=== PATIENT | male | born 1965 | race Caucasian/White ===

== ENCOUNTER 2022-07-13 19:57 | Emergency (ER) | payer OTHER, SELFPAY ==
[2022-07-13] VITALS (27 sets, daily range): BP systolic 129–171; BP diastolic 87–145; PULSE 84–112; RESP 12–24; TEMP 36.4–36.8; O2SAT 95–100
--- NOTE | ~2022-07-13 | XR_ITS ---
EXAMINATION: XR shoulder LT min 2V DATE: 07/13/2022 21:31 INDICATION: Postreduction left shoulder fracture dislocation. TECHNIQUE: AP and transscapular Y views of the left shoulder were obtained. COMPARISON: None FINDINGS: Successful reduction of the previously dislocated left glenohumeral joint. The previously displaced c omminuted fracture fragments involving the greater tuberosity of the proximal left humerus of also be en reduced to near-anatomic alignment. No other fractures identified. Mild glenohumeral osteoarthriti s. Visualized portion of the lungs are clear. IMPRESSION: 1. Successful reduction of the previously dislocated left glenohumeral joint which now in normal alig nment with mild osteoarthritis. 2. Successful reduction to near-anatomic alignment of a comminuted fracture of the greater tuberosity of the proximal left humerus. Reviewed, dictated and finalized at location A. YING AND CALKING SUPERVISOR IMPRESSION: 1. Successful reduction of the previously dislocated left glenohumeral joint wh ich now in normal alignment with mild osteoarthritis. 2. Successful reduction to near-anatomic alignment of a comminuted fracture of the greater tuberosity of the proximal left humerus.
--- NOTE | ~2022-07-13 | XR_ITS ---
EXAMINATION: XR shoulder LT min 2V INDICATION: Left shoulder pain, initial encounter TECHNIQUE: Three views of the left shoulder are submitted. COMPARISON: None FINDINGS: There is anterior and inferior dislocation of the humeral head with respect to the glenoid. There appears to be a comminuted greater tuberosity fracture. No additional fracture is identified. IMPRESSION: 1. Anterior and inferior dislocation of the humeral head with probable comminuted greater tuberosity fracture. Reviewed, dictated and finalized at location F. EDICAL ANALYTICAL SCIENTIST IMPRESSION: 1. Anterior and inferior dislocation of the humeral head with probable comminut ed greater tuberosity fracture.
--- NOTE | ~2022-07-13 | CT_ITS ---
EXAMINATION: CT chest abdomen pelvis w con DATE: 07/13/2022 22:39 INDICATION: Trauma post fall while intoxicated. Left shoulder fracture dislocation. TECHNIQUE: Computed tomography (CT) of the chest, abdomen, and pelvis was performed with 100 mL Omnip aque-350 intravenous contrast. Automated exposure control and iterative reconstruction technique were employed. The dose-length product was 576.18 mGy-cm. COMPARISON: None FINDINGS: CHEST CT: Mild emphysema. Atelectasis with volume loss and dependent groundglass opacities in the bilateral low er lobes. Small calcified right middle lobe nodule consistent with old granulomatous disease. No pleu ral effusion or pneumothorax. Mild cardiomegaly. No pericardial effusion. Atherosclerotic coronary ar emma calcification. Thoracic aorta is normal in caliber with no dissection or acute traumatic aortic injury. No pathologically enlarged thoracic lymphadenopathy. Diffuse mild esophageal wall thickening. Known fracture of the greater tuberosity of the left humerus is visible on the manager poker topogram. The p reviously dislocated left glenohumeral joint has been successfully reduced. ABDOMEN/PELVIS CT: Mild focal hepatic steatosis at the ligamentum teres. Gallbladder, pancreas, spleen, bilateral adrena l glands and kidneys are normal. Incidentally noted circumaortic left renal veins. Bowels including t appendix are normal. Bladder is normal. No free intraperitoneal gas or fluid. No pathologically en larged abdominal or pelvic lymphadenopathy. Moderate to severe lower lumbar spondylosis. IMPRESSION: 1. Minimally displaced fracture at the greater tuberosity of the proximal left humerus seen only on t manager poker topogram. No acute visceral organ injury in the chest, abdomen or pelvis. 2. Mild emphysema. 3. Mild cardiomegaly with coronary artery disease. 4. Diffuse mild esophageal wall thickening which could be seen with esophagitis which could be due to either reflux or other infectious or inflammatory etiologies. Reviewed, dictated and finalized at location A. UCT MARKETER IMPRESSION: 1. Minimally displaced fracture at the greater tuberosity of the proximal left humerus seen only on the manager poker topogram. No acute visceral organ injury in the chest, abdomen or pelvis. 2. Mild emphysema. 3. Mild cardiomegaly with coronary artery disease. 4. Diffuse mild esophageal wall thickening which could be seen with esophagitis which could be due to either reflux or other infectious or inflammatory etiolo gies.
--- NOTE | ~2022-07-13 | CT_ITS ---
EXAMINATION: CT brain wo con INDICATION: Head injury COMPARISON: None TECHNIQUE: Standard unenhanced head CT. The dose-length product (DLP) was 681.00 mGy-cm. The mA was a djusted according to patient size. Iterative reconstruction technique was employed. FINDINGS: There is no acute intraparenchymal hemorrhage. No evidence of mass lesion. No evidence of a cute infarction. There is mild periventricular and subcortical hypodensity probably related to small vessel ischemic disease. There is mild prominence of the sulci and ventricles related to cerebral atr ophy. Intracranial calcified cerebral atherosclerosis is noted. There are no extra-axial collections. There is no mass effect or midline shift. The orbits and soft tissues are unremarkable. There is mil d mucosal thickening of the paranasal sinuses. IMPRESSION: 1. No acute intracranial abnormality. 2. Age related findings. Reviewed, dictated and finalized at location F. INE ROPE MAKER
--- NOTE | ~2022-07-13 | CT_ITS ---
EXAMINATION: CT cervical spine wo con DATE: 07/13/2022 20:44 INDICATION: Head injury TECHNIQUE: Computed tomography (CT) of the cervical spine was performed without intravenous contrast. The dose-length product (DLP) was 387.57 mGy-cm. Automated exposure control and iterative reconstruc tion technique were employed. COMPARISON: None FINDINGS: Bone alignment is normal. There is no fracture. The vertebral body heights are maintained. The odontoid process is intact. There is mild loss of intervertebral disc space height from C4-5 thro ugh C7-T1. There is mild facet and uncovertebral joint osteoarthritis. IMPRESSION: 1. Mild cervical spondylosis without acute findings. Reviewed, dictated and finalized at location F. FACTURING ASSOCIATE
[2022-07-13 21:10] LABS: Basophils Absolute Auto 0.1 K/mm3 (0.0-0.1); Basophils Percent Auto 0.8 % (0.2-1.2); Eosinophils Absolute Auto 0.1 K/mm3 (0-0.3); Hematocrit 51.3 % (42.0-52.0); Hemoglobin 17.7 g/dL (14.0-18.0); Immature Granulocyte Absolute 0.01 K/mm3 (0.00-0.031); Immature Granulocyte Percent A 0.2 % (0-0.5); Lymphocytes Absolute Auto 2.42 K/mm3 (0.9-3.2); Lymphocytes Percent Auto 40.5 % (18.3-44.2); Mean Corpuscular HGB Conc 34.5 g/dl (32-36); Mean Corpuscular Hemoglobin 34.5 pg (26-34); Mean Platelet Volume 9.1 fl (7.4-10.4); Monocytes Absolute Auto 0.6 K/mm3 (0.1-0.6); Monocytes Percent Auto 9.4 % (2.6-8.5); Neutrophils Absolute Auto 2.8 K/mm3 (1.3-6.7); Neutrophils Percent Auto 47.1 % (45.5-73.1); Platelet Count Result 284 k/mm3 (150-375); Red Blood Count 5.13 M/mm3 (4.6-6.20); Red Cell Distribution Width 12.8 % (11.5-14.5)
[2022-07-13] MEDS: HYDROmorphone HCL INJ (*CRX) 1 MG/ML SYR IV PUSH (21:10)
[2022-07-13] MEDS: ONDANSETRON INJ 4 MG/2 ML VIAL IV PUSH (21:10)
--- NOTE | 2022-07-13 21:20 | ED.FALL ---
HPI - Fall General Chief Complaint: Fall <SHIRA Nails Last Filed: 07/14/22 04:39> Stated Complaint: L SHOULDER PAIN, ETOH, FALL <SHIRA Nails Last Filed: 07/14/22 04:39> Time Seen by Provider: 07/13/22 20:10 <SHIRA Nails Last Filed: 07/14/22 04:39> Source: patient, EMS and old records reviewed <SHIRA Nails Last Filed: 07/14/22 04:39> Mode of arrival: EMS <SIHRA Nails Last Filed: 07/14/22 04:39> Limitations: intoxication <SHIRA Nails Last Filed: 07/14/22 04:39> History of Present Illness HPI Narrative: Patient is a 57 y/o male who presents to the ED via EMS with c/o a fall. Per EMS report, patient was found down at a local bus stop with obvious trauma to his left shoulder. It appeared as though he had fallen. Unclear HI. C-collar was placed in route to the ED. Patient intoxicated. He admits to drinking 5 beers and 2 shots of fireball today. He is a daily drinker. He does complain of significant pain to his left shoulder. Unable to tell me how the fall occurred, appears to not even understand that he fell today. Patient denies any other areas of pain at this time. Denies dizziness, lightheadedness, nausea, CP, SOB, vision changes, abdominal pain. <SHIRA Nails Last Filed: 07/14/22 04:39> Related Data Allergies/Adverse Reactions: Allergies Allergy/AdvReac Type Severity Reaction Status Date / Time No Known Allergies Allergy Verified 07/13/22 20:14 <SHIRA Nails Last Filed: 07/14/22 04:39> Review of Systems Review of Systems: CONSTITUTIONAL: Denies fever, chills, or sweats. EYES: Denies visual changes. CARDIOVASCULAR: Denies chest pain. RESPIRATORY: Denies dyspnea. GASTROINTESTINAL: Denies abdominal pain, nausea, vomiting. MUSCULOSKELETAL: See HPI. NEUROLOGIC: See HPI. <Sandra Christensen PA-C - Last Filed: 07/14/22 04:39> All systems reviewed & are unremarkable except as noted in HPI and below <Sandra Christensen PA-C - Last Filed: 07/14/22 04:39> PMFSH Past Medical History Medical History: Medical History (Updated 07/14/22 @ 03:33 by Sandra Christensen PA-C) COPD (chronic obstructive pulmonary disease) <Sandra Christensen PA-C - Last Filed: 07/14/22 04:39> Surgical History Surgical History: Surgical History (Updated 07/13/22 @ 23:24 by Sandra Christensen PA-C) No pertinent past surgical history <Sandra Christensen PA-C - Last Filed: 07/14/22 04:39> Social History Social History: Social History (Updated 07/14/22 @ 04:33 by Sandra Christensen PA-C) Smoking status: Current every day smoker Alcohol intake: current Alcohol use details: alcoholism <Sandra Christensen PA-C - Last Filed: 07/14/22 04:39> Exam Narrative: GENERAL: Disheveled, well-nourished, non-toxic, in mild acute distress due to pain. HEAD: Normocephalic, atraumatic. NECK: Supple. No adenopathy, no masses. C-collar in place. No appreciable midline cervical spinal tenderness to palpation. RESPIRATORY: Airway patent, respirations nonlabored. Clear to auscultation bilaterally, no rales, rhonchi, wheezing. CARDIOVASCULAR: Tachycardic with regular rhythm without murmurs, rubs, or gallops. Radial pulses 2+ and equal bilaterally. ABDOMINAL: Soft, nontender, nondistended, no hepatosplenomegaly. Normoactive BS. MUSCULOSKELETAL: Limited range of motion of left shoulder due to pain. Obvious deformity with shoulder appearing to be dislocated anteriorly. Patient holding arm in flexed abduction above head. Sensation intact. Able to move all fingers. No tenderness over left elbow or wrist. Good capillary refill of all fingers. SKIN: Warm, dry, normal color. No rashes. Yellow discoloration of fingers. NEURO: A&O X3, able to answer all orientation questions. Speech somewhat garbled, consistent with intoxication. Cranial nerves II-XI
[2022-07-13 21:24] LABS: INR 0.9; Prothrombin Time 11.8 Seconds (11.1-14.7)
[2022-07-13 21:25] LABS: Partial Thromboplastin Time 26.5 SECONDS (22.3-36.8)
[2022-07-13 21:41] LABS: Ethanol 362 mg/dL (<10)
[2022-07-13 21:55] LABS: Alanine Aminotransferase 28 U/L (6-50); Albumin Level 4.9 g/dL (3.5-5.1); Alkaline Phosphatase 80 U/L (38-126); Anion Gap 13 mmol/L (8-16); Aspartate Amino Transferase 43 U/L (17-59); Bilirubin,Total 0.5 mg/dL (0.2-1.3); Blood Urea Nitrogen 4 mg/dL (9-20); Calcium 9.1 mg/dL (8.4-10.2); Carbon Dioxide 28 mmol/L (22-30); Chloride 102 mmol/L (98-107); Estimated Glomerular Filt Rate > 60; Glucose 100 mg/dL (65-110); Potassium 3.6 mmol/L (3.4-5.0); Sodium 143 mmol/L (137-145)
--- NOTE | 2022-07-13 22:22 | PC.NURSE ---
2115 50 Mg propofol pushed by ERP for conscious sedation.
[2022-07-13] MEDS: SODIUM CHLORIDE 0.9% IV 1,000 ML 999 ML (22:29)
[2022-07-14] VITALS (15 sets, daily range): BP systolic 106–128; BP diastolic 77–116; PULSE 101–119; RESP 12–28; O2SAT 91–100
[2022-07-14] MEDS: KETOROLAC 30 MG/ML VIAL (*BKC) IV PUSH (03:19)
== END 2022-07-14 03:45 | disposition home or self-care (01) ==
PROVIDERS: Emergency Provider Physician Assistant
DX: S43.015A Anterior dislocation of left humerus, initial encounter (principal); S42.252A Displaced fracture of greater tuberosity of left humerus, initial encounter for closed fracture; F10.10 Alcohol abuse, uncomplicated; Y90.8 Blood alcohol level of 240 mg/100 ml or more; J44.9 Chronic obstructive pulmonary disease, unspecified; W19.XXXA Unspecified fall, initial encounter
CPT/HCPCS: 23665; 36415; 70450; 71260; 72125; 73030; 74177; 80053; 80307; 85025; 85610; 85730; 96361; 96374; 96375; 99285; J1170; J1885; J2405; J2704; J7030; Q9967

== ENCOUNTER 2022-07-28 07:48 | Inpatient (IN) | payer OTHER, SELFPAY ==
[2022-07-28] VITALS (12 sets, daily range): BP systolic 127–172; BP diastolic 71–123; PULSE 62–101; RESP 16–20; TEMP 36.7–37; O2SAT 93–99; BMI 24.3
--- NOTE | ~2022-07-28 | XR_ITS ---
Left Shoulder Technique: AP and scapular Y views were obtained. Clinical History: Injury COMPARISON: 07/13/2022 Findings: There is a fracture involving the greater tuberosity of the humerus, with mild displacement small fragments which is new as compared to prior exam. There is increased lucency about the previou sly noted fracture on compatible with interval early healing process. Soft tissues are unremarkable. Impression: Fracture the greater tuberosity humerus, with interval displacement of several small fragments. Reviewed, dictated and finalized at location . Impression: Fracture the greater tuberosity humerus, with interval displacement of several small fragments.
--- NOTE | 2022-07-28 07:55 | ECG_ITS ---
Measurements Intervals [place] Rate: 98 P: 58 OK: 162 QRS: 17 QRSD: 94 T: 26 QT: 344 QTc: 441 Interpretive Statements SINUS RHYTHM INCOMPLETE RIGHT BUNDLE BRANCH BLOCK BASELINE ARTIFACT- I, II, III, AVR, AVL, AVF, V1-V6 BORDERLINE ECG NO PREVIOUS ECG AVAILABLE FOR COMPARISON Electronically Signed On 07-28-2022 8:24:58 CDT by Tevin Shah D.O.
--- NOTE | 2022-07-28 08:03 | ED.ARRPALP ---
HPI - Arrhythmia/Palpitations General Chief Complaint: Arrhythmia/Palpitations Stated Complaint: palpitations, shoulder pain, alcohol abuse Time Seen by Provider: 07/28/22 07:50 History of Present Illness HPI narrative: Patient had injured his left shoulder and was supposed to follow-up, however the pain medication he had been started on contain a narcotic, and his monthly naltrexone dosage had been held because of this, and he states that he started drinking again and his girlfriend then broke up with him, he has been drinking more to cope with this. Last drink was last night. He hasn't worn his sling because he can't figure it out. Related Data Allergies Allergy/AdvReac Type Severity Reaction Status Date / Time No Known Allergies Allergy Verified 07/13/22 20:14 Review of Systems Review of Systems: CONST: No fever. HEENT: No sore throat C/V: No chest pain RESP: No cough GI: no nausea or vomiting : No dysuria. M/S: Left shoulder pain SKIN: No rash. NEURO: Tremors PSYCH: Feeling sad [facility] Past Medical History Medical History (Updated 07/28/22 @ 13:09 by Allyn Chamorro MD) Alcohol abuse COPD (chronic obstructive pulmonary disease) Surgical History Surgical History (Updated 07/28/22 @ 13:07 by Megan Dunn NP) History of appendectomy S/P T&A (status post tonsillectomy and adenoidectomy) Family History Family History (Updated 07/28/22 @ 13:07 by Megan Dunn NP) Father AA (alcohol abuse) Social History Social History (Updated 07/28/22 @ 13:05 by Megan Dunn NP) Social History: lives alone. [employer] 3 children 1ppk 8-10 beers Smoking status: Current every day smoker Alcohol intake: current Alcohol use details: alcoholism Exam Narrative: EXAMINATION OF ORGAN SYSTEMS/BODY AREAS: Constitutional: Vital signs per nursing GENERAL: Appears quite sad HEAD: Normal with no signs of head trauma. EYES: EOMI, conjunctiva normal ENT: Hearing grossly intact LUNGS: Nonlabored breathing. HEART: Regular rate and rhythm ABD: [Soft], [nontender to palpation] EXT: Some bruising and tenderness over the left shoulder SKIN: Some bruising over left shoulder NEURO: [Alert and oriented x 3. Tremulous.] PSYCH: Sad affect. Denies any thoughts of self-harm Course Vital Signs Vital signs: Vital Signs Temperature 98.6 F 07/28/22 08:00 Pulse Rate 91 07/28/22 08:00 Respiratory Rate 20 07/28/22 08:00 Blood Pressure 172/123 H 07/28/22 08:00 Pulse Oximetry 99 07/28/22 08:00 Oxygen Delivery Room Air 07/28/22 08:00 Temperature 98.6 F 07/28/22 08:00 Pulse Rate 101 H 07/28/22 11:31 Respiratory Rate 20 07/28/22 11:31 Blood Pressure 155/112 H 07/28/22 11:31 Pulse Oximetry 95 07/28/22 11:31 Oxygen Delivery Room Air 07/28/22 08:00 MDM - Arrhythmia/Palpitations MDM Narrative Medical decision making narrative: 57-year-old male presenting with concern for alcohol withdrawal, he also injured his shoulder a week ago but has not been able to follow-up nor has he been able to figure how to put his sling back on. He has been drinking to cope with the pain. Vital signs notable for blood pressure and tachycardia here, he is quite tremulous here, I did do suspect he may be in very mild withdrawal, he will be started on benzodiazepines here, I will reimage his shoulder. I did review the images myself, noted possible worsening/more fragments than prior shoulder x-ray, he is placed back in a sling, I did reevaluate him and though he is feeling better after the initial medications, he does live alone there are stairs at home, and he is unsure if he is able to care for himself, given this and the fact that he is still having quite serious tremors, I do feel he could benefit from admission for alcohol withdrawal and possible physical therapy. Case discussed with the hospitalist. Lab Data 07/28/22 08:29 07/28/22 08:29 Labs: Lab Results
[2022-07-28 08:34] LABS: Basophils Absolute Auto 0.1 K/mm3 (0.0-0.1); Basophils Percent Auto 0.7 % (0.2-1.2); Eosinophils Percent Auto 0.1 % (0-4.4); Hematocrit 41.9 % (42.0-52.0); Hemoglobin 14.8 g/dL (14.0-18.0); Immature Granulocyte Absolute 0.03 K/mm3 (0.00-0.031); Immature Granulocyte Percent A 0.3 % (0-0.5); Lymphocytes Percent Auto 11.2 % (18.3-44.2); Mean Corpuscular HGB Conc 35.3 g/dl (32-36); Mean Corpuscular Hemoglobin 34.7 pg (26-34); Mean Corpuscular Volume 98.1 fl (80-100); Mean Platelet Volume 8.1 fl (7.4-10.4); Monocytes Absolute Auto 0.4 K/mm3 (0.1-0.6); Monocytes Percent Auto 3.9 % (2.6-8.5); Neutrophils Percent Auto 83.8 % (45.5-73.1); Platelet Count Result 552 k/mm3 (150-375); Red Blood Count 4.27 M/mm3 (4.6-6.20); Red Cell Distribution Width 12.6 % (11.5-14.5); White Blood Count 10.7 K/mm3 (4.5-10.0)
[2022-07-28] MEDS: LACTATED RINGERS 1,000 ML 999 ML IV CONT (08:34)
[2022-07-28] MEDS: chlordiazePOXIDE (*CRX) 25 MG CAPSULE PO ×2 (08:34→12:01)
[2022-07-28] MEDS: LORazepam INJ (*CRX) 2 MG/ML VIAL IV PUSH ×4 (08:38→23:10)
[2022-07-28 08:43] LABS: Ethanol 165 mg/dL (<10)
[2022-07-28 08:44] LABS: Alanine Aminotransferase 18 U/L (6-50); Albumin Level 4.7 g/dL (3.5-5.1); Alkaline Phosphatase 92 U/L (38-126); Anion Gap 7 mmol/L (8-16); Aspartate Amino Transferase 38 U/L (17-59); Bilirubin,Total 0.8 mg/dL (0.2-1.3); Blood Urea Nitrogen 5 mg/dL (9-20); Carbon Dioxide 26 mmol/L (22-30); Chloride 105 mmol/L (98-107); Estimated Glomerular Filt Rate > 60; Glucose 80 mg/dL (65-110); Potassium 4.2 mmol/L (3.4-5.0); Sodium 138 mmol/L (137-145)
--- NOTE | 2022-07-28 11:31 | PC.NURSE ---
assumed care of pt. pt resting on stretcher, arousable to name. pt c/o left shoulder pain. no other distress noted at this time
--- NOTE | 2022-07-28 12:58 | PM.IMHP ---
H&P: HPI History of Present Illness Date/Time: 07/28/22 12:58 Chief Complaint: Palpitation Narrative: This is a 57-year-old male patient who was recently seen on 07/13/2022 due to ETOH and left shoulder pain. At that time the patient fell down at a bus terminal now and had trauma to his left shoulder. And orthopedic joint reduction had been performed at that time. The patient was placed in a shoulder immobilizer and sent home at that time. The patient came into the emergency room today because of increased alcohol use. The patient last drink last night. The patient has not been able to wear his left shoulder sling due to difficulty placing it on his left shoulder. His white count is 10.7. His alcohol level is 165. Shoulder x-ray was read as fracture the greater tuberosity humerus and interval displacement of several small fragments. The patient was having tremors in the emergency room and going through alcohol withdrawals. The patient was given Ativan and a banana bag as well as Librium in the emergency room. The patient is being admitted to inpatient status on the date of service of 07/28/2022 Review of Systems Review of Systems: All systems reviewed & are unremarkable except as noted in HPI and below Constitutional: Constitutional: Reports as per HPI and Reports no additional constitutional complaints Eyes: Eyes: Reports as per HPI and Reports no additional eye complaints ENT: Reports system reviewed and no additional complaints, except as documented and Reports Normal hearing present Cardiovascular: Cardiovascular: Reports no additional cardiovascular complaints Respiratory: Respiratory: Reports no additional respiratory complaints and Reports no additional respiratory complaints Gastrointestinal: Gastrointestinal: Reports as per HPI and Reports no additional gastrointestinal complaints Musculoskeletal: Musculoskeletal: Reports no additional musculoskeletal complaints Integumentary/Breasts: Skin/Breast: Reports system reviewed and no additional complaints, except as docu and Reports as per HPI Neurologic: Reports system reviewed and no additional complaints, except as documented, Reports as per HPI and Reports Normal hearing present Psychiatric: Psychiatric: Reports no additional psychiatric complaints and Reports as per HPI Endocrine: Endocrine: Reports no additional endocrine complaints Hematologic/Lymphatic: Hematologic/Lymphatic: Reports no additional hematologic/lymphatic complaints Allergic/Immunologic: Allergic/Immunologic: Reports no additional allergic/immunologic complaints [facility] Past Medical History Medical History (Updated 07/28/22 @ 17:32 by Megan Dunn NP) Alcohol abuse COPD (chronic obstructive pulmonary disease) Tobacco abuse Surgical History Surgical History (Updated 07/28/22 @ 17:26 by Megan Dunn NP) History of appendectomy S/P T&A (status post tonsillectomy and adenoidectomy) Family History Family History Father AA (alcohol abuse) Social History Social History (Updated 07/28/22 @ 17:34 by Megan Dunn NP) Social History: He is and lives alone. He recently broke up with a significant other. He works at the [employer]. He has 3 children. He smokes anywher 3/ 4 to 1ppk a cigarettes per day. He drinks approximately 8-10 beers a day. Code status full code Smoking status: Current every day smoker Alcohol intake: current Alcohol use details: alcoholism Meds Home Medications and Allergies Home Medications Medication Instructions Recorded Confirmed Type hydrocodone 5 mg-acetaminophen 325 1 tablet PO Q6H PRN pain #15 tabs 07/14/22 Rx mg tablet naproxen 250 mg tablet 250 mg PO BID PRN pain #20 tabs 07/14/22 Rx Allergies Allergy/AdvReac Type Severity Reaction Status Date / Time No Known Allergies Allergy Verified 07/13/22 20:14 Vital Signs Vital Signs - 24 hr
[2022-07-28 18:06] LABS: Glucose Point of Care 83 mg/dl (65-105)
[2022-07-28] MEDS: chlordiazePOXIDE (*CRX) 25 MG CAPSULE 50 MG PO ×2 (18:23→23:10)
--- NOTE | 2022-07-28 19:00 | ADMIMU ---
This patient, Fabian Madden, was admitted to IMU status, and placed in IMU Room 206-02. Patient/family oriented to hospital policies and general routines including ID bracelet, bed and alarms, visiting hours, pain management, procedures, bathroom and other care routines, personal items, smoking policy, room service/diet, and visiting hours. Valuables list has been completed. Information on how to activate the Rapid Response Team has been discussed. Patient/Family are encouraged to report perceived risks to care and to ask questions if they do not understand what they are told or what they should do.
[2022-07-29] VITALS: BP 128/78; PULSE 63; PULSE 64; RESP 20; TEMP 36.7; O2SAT 94
[2022-07-29 00:03] LABS: Glucose Point of Care 105 mg/dl (65-105)
[2022-07-29 02:00] VITALS: PULSE 62
[2022-07-29 04:00] VITALS: BP 143/86; PULSE 62; PULSE 65; PULSE 85; RESP 20; TEMP 36.4; O2SAT 92; O2SAT 94
[2022-07-29 05:08] LABS: Basophils Absolute Auto 0.1 K/mm3 (0.0-0.1); Basophils Percent Auto 1.3 % (0.2-1.2); Eosinophils Absolute Auto 0.3 K/mm3 (0-0.3); Eosinophils Percent Auto 4.1 % (0-4.4); Hematocrit 37.5 % (42.0-52.0); Hemoglobin 13.1 g/dL (14.0-18.0); Immature Granulocyte Absolute 0.02 K/mm3 (0.00-0.031); Immature Granulocyte Percent A 0.3 % (0-0.5); Lymphocytes Percent Auto 19.7 % (18.3-44.2); Mean Corpuscular HGB Conc 34.9 g/dl (32-36); Mean Corpuscular Hemoglobin 34.8 pg (26-34); Mean Corpuscular Volume 99.7 fl (80-100); Mean Platelet Volume 8.5 fl (7.4-10.4); Monocytes Absolute Auto 0.5 K/mm3 (0.1-0.6); Monocytes Percent Auto 7.7 % (2.6-8.5); Neutrophils Absolute Auto 4.1 K/mm3 (1.3-6.7); Neutrophils Percent Auto 66.9 % (45.5-73.1); Platelet Count Result 443 k/mm3 (150-375); Red Blood Count 3.76 M/mm3 (4.6-6.20); Red Cell Distribution Width 12.3 % (11.5-14.5); White Blood Count 6.1 K/mm3 (4.5-10.0)
[2022-07-29 05:17] LABS: Alanine Aminotransferase 14 U/L (6-50); Albumin Level 3.5 g/dL (3.5-5.1); Alkaline Phosphatase 77 U/L (38-126); Anion Gap 1 mmol/L (8-16); Aspartate Amino Transferase 27 U/L (17-59); Bilirubin,Total 1.4 mg/dL (0.2-1.3); Blood Urea Nitrogen 6 mg/dL (9-20); Calcium 8.6 mg/dL (8.4-10.2); Carbon Dioxide 29 mmol/L (22-30); Chloride 105 mmol/L (98-107); Estimated CRCL calculation 102 ml/min; Estimated Glomerular Filt Rate > 60; Glucose 85 mg/dL (65-110); Lipase 57 U/L (23-300); Magnesium 1.8 mg/dL (1.6-2.3); Potassium 3.5 mmol/L (3.4-5.0); Sodium 135 mmol/L (137-145)
[2022-07-29] MEDS: chlordiazePOXIDE (*CRX) 25 MG CAPSULE 50 MG PO (05:46)
[2022-07-29 05:58] VITALS: PULSE 71
[2022-07-29 08:00] VITALS: BP 132/70; PULSE 74; RESP 14; TEMP 36.4; O2SAT 96
--- NOTE | 2022-07-29 10:28 | PC.NURSE ---
Upon morning assessment, patient alert and oriented x3, VSS. Patient refused medications and stated he was leaving. patient was advised of all risk and complications related to leaving against medical care. Patient was also informed of complete liability of medical bill if he left without consent. IV and contract specialist was removed at this time. Patient signed consent to leave and took off his imobility sling. Patient walked out of hospital by himself. Phyisician notified and updated.
--- NOTE | 2022-07-29 11:49 | PM.DS ---
DS: Admitting Diagnosis Discharge Date 07/29/22 Admitting Diagnosis 07/28/2022 Palpitation DS: Discharge Diagnosis Discharge Diagnosis (1) Alcohol withdrawal: Code(s): F10.939 - Alcohol use, unspecified with withdrawal, unspecified Status: Acute Assessment and Plan: Continue using CIWA score sales support coordinator consult greatly be appreciated. The patient stated that he is willing to go to rehab. The patient was given a banana bag. Continue with Librium Continue with p.r.n. Ativan Continue with thiamin and folic acid P.r.n. Haldol (2) COPD (chronic obstructive pulmonary disease): Code(s): J44.9 - Chronic obstructive pulmonary disease, unspecified Status: Acute Assessment and Plan: P.r.n. albuterol (3) Injury of shoulder: Code(s): S49.90XA - Unspecified injury of shoulder and upper arm, unspecified arm, initial encounter Status: Acute Assessment and Plan: PT OT evaluation greatly be appreciated. continue use of left arm sling (4) Tobacco abuse: Code(s): Z72.0 - Tobacco use Status: Acute Assessment and Plan: Smoking cessation has discussed for approximately 5 minutes the patient is agreeable to a nicotine patch DS: Summary Hospital Course Hospital Course: Pt admitted 07/28 pt left AMA 07/29 before being seen by MD, pulled off sling and left AMA. Time Spent with Patient Time attestation: Total time spent providing and/or coordinating discharge services: DS: Data Data Completed and Pending Labs on day of discharge: Labs from last 24 hours 07/29/22 07/29/22 07/29/22 04:44 04:44 04:44 WBC 6.1 RBC 3.76 L Hgb 13.1 L Hct 37.5 L MCV 99.7 MCH 34.8 H MCHC 34.9 RDW 12.3 Plt Count 443 H MPV 8.5 Immature Gran % (Auto) 0.3 Neut % (Auto) 66.9 Lymph % (Auto) 19.7 Dixie % (Auto) 7.7 Eos % (Auto) 4.1 Baso % (Auto) 1.3 H Lymph # (Auto) 1.20 Dixie # (Auto) 0.5 Eos # (Auto) 0.3 Baso # (Auto) 0.1 Abs Immat Gran (auto) 0.02 Absolute Neuts (auto) 4.1 Absolute Nucleated RBC 0.0 Nucleated RBC % 0.0 Sodium 135 L Potassium 3.5 Chloride 105 Carbon Dioxide 29 Anion Gap 1 L BUN 6 L Creatinine 0.60 L Estim Creat Clear Calc 102 Estimated GFR > 60 Glucose 85 POC Capillary Glucose Calcium 8.6 Magnesium 1.8 Total Bilirubin 1.4 H AST 27 ALT 14 Alkaline Phosphatase 77 Total Protein 6.0 L Albumin 3.5 Lipase 57 TSH (Reflex) 3.640 07/28/22 07/28/22 23:57 18:03 WBC RBC Hgb Hct MCV MCH MCHC RDW Plt Count MPV Immature Gran % (Auto) Neut % (Auto) Lymph % (Auto) Dixie % (Auto) Eos % (Auto) Baso % (Auto) Lymph # (Auto) Dixie # (Auto) Eos # (Auto) Baso # (Auto) Abs Immat Gran (auto) Absolute Neuts (auto) Absolute Nucleated RBC Nucleated RBC % Sodium Potassium Chloride Carbon Dioxide Anion Gap BUN Creatinine Estim Creat Clear Calc Estimated GFR Glucose POC Capillary Glucose 105 83 Calcium Magnesium Total Bilirubin AST ALT Alkaline Phosphatase Total Protein Albumin Lipase TSH (Reflex) Discharge Plan Discharge Attending physician on discharge: Noelle Jamison Discharging Clinician: Noelle Jamison Anticipated Discharge Date/Time: 07/29/22 08:00 Patient Disposition: Left Against Medical Advice Activity: as tolerated Diet: as tolerated Discharge Medications: No Action trazodone 50 mg tablet 50 mg PO DAILY Date of admission: 07/28/22 12:21 Primary Care Provider: UNKNOWN,DOCTOR Admitting Provider: Rosi Verdugo Attending physician on admission: Rosi Verdugo Condition: Improved
== END 2022-07-29 09:17 | disposition left against medical advice (07) | DRG 770 ==
LOC: ANHED 13:09 → ANHIMU 15:36
PROVIDERS: Nurse Practitioner; Admitting Provider Family Medicine; Emergency Provider Emergency Medicine; Visit Provider Family Medicine
DX: F10.239 Alcohol dependence with withdrawal, unspecified (principal); F17.210 Nicotine dependence, cigarettes, uncomplicated; S42.252A Displaced fracture of greater tuberosity of left humerus, initial encounter for closed fracture; J44.9 Chronic obstructive pulmonary disease, unspecified; W18.30XA Fall on same level, unspecified, initial encounter
CPT/HCPCS: 36415; 73030; 80053; 80307; 82948; 83690; 83735; 84443; 85025; 93005; 96361; 96374; 96376; 99285; A4565; A9270; J2060; J3411; J3475; J7030; J7120

== ENCOUNTER 2022-08-28 16:59 | Emergency (ER) | payer OTHER, SELFPAY ==
[2022-08-28 17:27] VITALS: BP 139/92; PULSE 86; RESP 16; TEMP 36.6; O2SAT 96
--- NOTE | 2022-08-28 17:47 | ED.ANIMALBIT ---
HPI - Animal Bite General Chief Complaint: Animal Bite Stated Complaint: Dog Bite Time Seen by Provider: 08/28/22 17:47 Source: patient, RN notes reviewed and old records reviewed Mode of arrival: ambulatory Limitations: no limitations History of Present Illness HPI narrative: 57-year-old male presents to the [facility] with complaints of a dog bite to the right upper thigh that occurred at 6:45 last night. States that he was evaluated by paramedics but did not seek further medical treatment. Dog is currently under quarantine, has not had shots in years. Red, scabbed over area noted 4 x 4 cm with a scabbed over area that is 4 cm Onset (ago): day(s) (1) Related Data Patient tetanus UTD: No Home Medications Medication Instructions Recorded Confirmed trazodone 50 mg tablet 50 mg PO DAILY 07/28/22 08/28/22 aripiprazole 2 mg tablet 2 mg PO DIRECTED 08/28/22 08/28/22 hydroxyzine pamoate 25 mg capsule 25 mg PO DIRECTED 08/28/22 08/28/22 Allergies Allergy/AdvReac Type Severity Reaction Status Date / Time Opioids - Morphine Analogues AdvReac Unknown Unknown Verified 08/28/22 17:01 Review of Systems Review of Systems: All systems reviewed & are unremarkable except as noted in HPI and below Constitutional: Constitutional: Reports no additional constitutional complaints Eyes: Eyes: Reports no additional eye complaints ENT: Reports system reviewed and no additional complaints, except as documented Cardiovascular: Cardiovascular: Reports no additional cardiovascular complaints, Denies chest pain and Denies dyspnea Respiratory: Respiratory: Reports no additional respiratory complaints, Denies chest congestion, Denies cough and Denies dyspnea Gastrointestinal: Gastrointestinal: Reports no additional gastrointestinal complaints, Denies abdominal pain, Denies nausea and Denies vomiting Musculoskeletal: Musculoskeletal: Reports no additional musculoskeletal complaints Integumentary/Breasts: Skin/Breast: Reports as per HPI Neurologic: Reports system reviewed and no additional complaints, except as documented Psychiatric: Psychiatric: Reports no additional psychiatric complaints Allergic/Immunologic: Allergic/Immunologic: Reports no additional allergic/immunologic complaints PMFSH Past Medical History Medical History Alcohol abuse COPD (chronic obstructive pulmonary disease) Tobacco abuse Surgical History Surgical History H/O vasectomy S/P T&A (status post tonsillectomy and adenoidectomy) Family History Family History Father AA (alcohol abuse) Social History Social History Social History: He is and lives alone. He recently broke up with a significant other. He works at the [employer]. He has 3 children. He smokes anywher 3/ 4 to 1ppk a cigarettes per day. He drinks approximately 8-10 beers a day. Code status full code Smoking packs per day: 1 Smoking cigarettes per day: 20.0 Years smoked: 30 Smoking pack-years: 30.00 Smoking status: Current every day smoker Tobacco type: cigarettes Alcohol intake: former Drinks per week: 70 Alcohol use details: quit drinking 07/29/22 Substance use: former Substance use type: marijuana Lack of Transportation: YES Lack of Food: Never True Current Housing: I Have Housing Concerned About Future Housing: YES Difficulty Paying Gas/Electric Bills: YES Difficulty Paying for Meds: No Currently Unemployed: No Education: Bachelor's Degree Difficulty w/ Childcare or Family Care: No Living arrangements: alone Occupation/Education: occupation Additional occupation/education comments: [employer] Gender identity (if verbalized by the patient): Male Spiritual care concerns: No Comments At the time of my
[2022-08-28] MEDS: TETANUS,DIPHTHERIA,AC PERTUSSIS ADULT (0.5 ML) BOOSTRIX IM (18:04)
== END 2022-08-28 18:15 | disposition home or self-care (01) ==
PROVIDERS: Emergency Provider Nurse Practitioner
DX: S71.151A Open bite, right thigh, initial encounter (principal); W54.0XXA Bitten by dog, initial encounter; Z23 Encounter for immunization; F17.210 Nicotine dependence, cigarettes, uncomplicated; J44.9 Chronic obstructive pulmonary disease, unspecified; Z98.52 Vasectomy status
CPT/HCPCS: 90471; 90715; 99213; G0463

== ENCOUNTER 2022-09-06 10:40 | Emergency (ER) | payer OTHER, SELFPAY ==
[2022-09-06 11:04] VITALS: BP 120/90; PULSE 81; RESP 18; TEMP 36.6; O2SAT 98
--- NOTE | 2022-09-06 11:17 | ED.GENADULT ---
HPI - General Adult General Chief complaint: Wound/Laceration Stated complaint: Right Thigh Pain Time Seen by Provider: 09/06/22 11:17 Source: patient, RN notes reviewed and old records reviewed Mode of arrival: ambulatory Limitations: no limitations History of Present Illness HPI narrative: 57-year-old male presents to the [facility] with right posterior thigh pain. Was seen and evaluated for a dog bite 08/28/22, tetanus updated, prescribed antibiotics. Patient states he has been keeping it clean but his pants keep rubbing on it. Has 4 more pills left of his antibiotics. Related Data Home Medications Medication Instructions Recorded Confirmed trazodone 50 mg tablet 50 mg PO DAILY 07/28/22 09/06/22 aripiprazole 2 mg tablet 2 mg PO DIRECTED 08/28/22 09/06/22 hydroxyzine pamoate 25 mg capsule 25 mg PO DIRECTED 08/28/22 09/06/22 Allergies Allergy/AdvReac Type Severity Reaction Status Date / Time Opioids - Morphine Analogues AdvReac Unknown Unknown Verified 09/06/22 11:02 Review of Systems Review of Systems: All systems reviewed & are unremarkable except as noted in HPI and below Constitutional: Constitutional: Reports no additional constitutional complaints Eyes: Eyes: Reports no additional eye complaints ENT: Reports system reviewed and no additional complaints, except as documented Cardiovascular: Cardiovascular: Reports no additional cardiovascular complaints, Denies chest pain and Denies dyspnea Respiratory: Respiratory: Reports no additional respiratory complaints, Denies chest congestion, Denies cough and Denies dyspnea Gastrointestinal: Gastrointestinal: Reports no additional gastrointestinal complaints, Denies abdominal pain, Denies nausea and Denies vomiting Musculoskeletal: Musculoskeletal: Reports no additional musculoskeletal complaints Integumentary/Breasts: Skin/Breast: Reports as per HPI Neurologic: Reports system reviewed and no additional complaints, except as documented Psychiatric: Psychiatric: Reports no additional psychiatric complaints Allergic/Immunologic: Allergic/Immunologic: Reports no additional allergic/immunologic complaints [facility] Past Medical History Medical History Alcohol abuse COPD (chronic obstructive pulmonary disease) Tobacco abuse Surgical History Surgical History H/O vasectomy S/P T&A (status post tonsillectomy and adenoidectomy) Family History Family History Father AA (alcohol abuse) Social History Social History Social History: He is and lives alone. He recently broke up with a significant other. He works at the [employer]. He has 3 children. He smokes anywher 3/ 4 to 1ppk a cigarettes per day. He drinks approximately 8-10 beers a day. Code status full code Smoking packs per day: 1 Smoking cigarettes per day: 20.0 Years smoked: 30 Smoking pack-years: 30.00 Smoking status: Current every day smoker Tobacco type: cigarettes Alcohol intake: former Drinks per week: 70 Alcohol use details: quit drinking 07/29/22 Substance use: former Substance use type: marijuana Lack of Transportation: YES Lack of Food: Never True Current Housing: I Have Housing Concerned About Future Housing: YES Difficulty Paying Gas/Electric Bills: YES Difficulty Paying for Meds: No Currently Unemployed: No Education: Bachelor's Degree Difficulty w/ Childcare or Family Care: No Living arrangements: alone Occupation/Education: occupation Additional occupation/education comments: warehouse Gender identity (if verbalized by the patient): Male Spiritual care concerns: No Comments At the time of my signature, I reviewed and agree with the nursing past medical, surgical, social, and family history. Ther
== END 2022-09-06 11:28 | disposition home or self-care (01) ==
PROVIDERS: Emergency Provider Nurse Practitioner
DX: Z48.00 Encounter for change or removal of nonsurgical wound dressing (principal); J44.9 Chronic obstructive pulmonary disease, unspecified; Z98.52 Vasectomy status; F17.210 Nicotine dependence, cigarettes, uncomplicated
CPT/HCPCS: 99211; G0463

== ENCOUNTER 2023-10-22 08:22 | Emergency (ER) | payer SELFPAY ==
--- NOTE | 2023-10-22 08:28 | ED.BACK ---
HPI - Back Pain/Injury General Chief Complaint: Back Pain/Injury Stated Complaint: Back/Side Pain Time Seen by Provider: 10/22/23 08:24 Source: patient Mode of arrival: ambulatory Limitations: no limitations History of Present Illness HPI Narrative: Patient is a 58-year-old male that presents with left-sided rib pain that has worsened over the last 3 days. Patient states he had a coughing fit while smoking marijuana and is now having muscle spasms. Patient took ibuprofen 400 mg last night. Denies any shortness of breath. Related Data Home Medications Medication Instructions Recorded Confirmed fluoxetine 40 mg capsule 40 mg PO DIRECTED 10/22/23 10/22/23 Allergies Allergy/AdvReac Type Severity Reaction Status Date / Time Opioids - Morphine Analogues AdvReac Unknown Unknown Verified 10/22/23 08:33 Review of Systems Review of Systems: All systems reviewed & are unremarkable except as noted in HPI and below Constitutional: Constitutional: Denies body ache(s), Denies chills, Denies fatigue, Denies fever(s), Denies headache(s), Denies malaise and Denies weakness Eyes: Eyes: Denies blurry vision, Denies irritation and Denies loss of vision ENT: Denies otalgia, Denies headache(s), Denies nasal discharge, Denies sinus pain and Denies sore throat Cardiovascular: Cardiovascular: Denies chest pain, Denies irregular heart rhythm and Denies dyspnea Respiratory: Respiratory: Denies dyspnea Gastrointestinal: Gastrointestinal: Denies abdominal pain, Denies melena, Denies hematochezia, Denies diarrhea, Denies nausea and Denies vomiting Musculoskeletal: Musculoskeletal: Denies back pain, Denies myalgias, Denies arthralgias and Reports other (Rib pain) Integumentary/Breasts: Skin/Breast: Denies pruritus and Denies rash Neurologic: Denies headache(s), Denies loss of vision and Denies weakness Psychiatric: Psychiatric: Reports no additional psychiatric complaints Endocrine: Endocrine: Denies fatigue PMFSH Past Medical History Medical History Alcohol abuse COPD (chronic obstructive pulmonary disease) Tobacco abuse Surgical History Surgical History H/O vasectomy S/P T&A (status post tonsillectomy and adenoidectomy) Family History Family History Father AA (alcohol abuse) Social History Social History Social History: He is and lives alone. He recently broke up with a significant other. He works at the [employer] He has 3 children. He smokes anywher 3/ 4 to 1ppk a cigarettes per day. He drinks approximately 8-10 beers a day. Code status full code Smoking packs per day: 1 Smoking cigarettes per day: 20.0 Years smoked: 30 Smoking pack-years: 30.00 Smoking status: Current every day smoker Tobacco type: cigarettes Alcohol intake: former Drinks per week: 70 Alcohol use details: quit drinking 07/29/22 Substance use: former Substance use type: marijuana Lack of Transportation: YES Lack of Food: Never True Current Housing: I Have Housing Concerned About Future Housing: YES Difficulty Paying Gas/Electric Bills: YES Difficulty Paying for Meds: No Currently Unemployed: No Education: Bachelor's Degree Difficulty w/ Childcare or Family Care: No Living arrangements: alone Occupation/Education: occupation Additional occupation/education comments: [employer] Gender identity (if verbalized by the patient): Male Spiritual care concerns: No Comments At time of signature, agree with nursing past medical, surgical, social and family history. There is no relevant family history pertinent to the presenting complaint. Exam Const: General: cooperative, healthy appearing, comfortable, no acute distress and well nourished Nutritional Appearance: w
[2023-10-22 08:41] VITALS: BP 145/89; PULSE 99; RESP 18; TEMP 36.6; O2SAT 98
== END 2023-10-22 09:45 | disposition home or self-care (01) ==
PROVIDERS: Emergency Provider Nurse Practitioner Family
DX: S29.011A Strain of muscle and tendon of front wall of thorax, initial encounter (principal); X58.XXXA Exposure to other specified factors, initial encounter; F17.210 Nicotine dependence, cigarettes, uncomplicated; J44.9 Chronic obstructive pulmonary disease, unspecified; F12.90 Cannabis use, unspecified, uncomplicated; Z98.52 Vasectomy status
CPT/HCPCS: 99213; G0463